=== PATIENT | female | born 1955 | race African-American/Black ===

== ENCOUNTER 2017-10-02 11:29 | Emergency (ER) | payer OTHER ==
[~2017-10-02] VITALS: Ht 160 cm; Wt 76.8 kg
[2017-10-02] MEDS ORDERED: SIME80TA11 PO (11:58)
[2017-10-02] MEDS ORDERED: ATEN100T PO (11:58)
[2017-10-02] MEDS ORDERED: HYDR25TA PO (11:58)
[2017-10-02] MEDS ORDERED: NITR.4 SL (11:58)
[2017-10-02] MEDS ORDERED: GLIP5 PO (11:58)
[2017-10-02] MEDS ORDERED: ROSU20 PO (11:58)
[2017-10-02] MEDS ORDERED: PARO10TA89 PO (11:58)
[2017-10-02] MEDS ORDERED: SITA50 PO (11:58)
[2017-10-02] MEDS ORDERED: ASPI81 PO (11:58)
[2017-10-02] MEDS ORDERED: PRAV40TA4 PO (11:58)
[2017-10-02 12:03] LABS: GLUCOSE,POINT OF CARE 162 MG/DL (70-110)
[2017-10-02 12:09] LABS: APPEARANCE,URINE CLOUDY (CLEAR); GLUCOSE, URINE (UA) >=1000 mg/dL (NEGATIVE); KETONES,URINE NEGATIVE (NEGATIVE); LEUKOCYTE ESTERASE ,URINE MODERATE (NEGATIVE); OCCULT BLOOD,URINE TRACE (NEGATIVE); PH,URINE 5.5 (5.0-8.0); PROTEIN,URINE TRACE (NEGATIVE)
[2017-10-02 12:21] LABS: ADD UA MICROSCOPIC YES
[2017-10-02 12:22] LABS: WBC,URINE >100 /HPF (0-5)
[2017-10-02 12:23] LABS: RBC,URINE 0-2 /HPF (0-2)
[2017-10-02 12:24] LABS: SQUAMOUS EPITHELIAL CELL,UR Few /LPF (None Seen)
[2017-10-02] MEDS ORDERED: CefTRIAXone SODIUM 1 GM/VIAL IM ONE (13:00)
[2017-10-02] MEDS ORDERED: LIDOCAINE HCL/PF 1% 2 ML VIAL IM ONE (13:00)
[2017-10-02 13:40] VITALS: BP 142/88
[2017-10-02] MEDS ORDERED: HYDROCODONE/ACETAMINOPHEN 5-325 MG TABLET PO ONE (14:00)
== END 2017-10-02 14:52 | disposition home or self-care (01) ==
LOC: EMS 11:31
DX: N39.0 Urinary tract infection, site not specified (principal); I20.9 Angina pectoris, unspecified; E11.9 Type 2 diabetes mellitus without complications; E78.00 Pure hypercholesterolemia, unspecified; I10 Essential (primary) hypertension; G89.29 Other chronic pain; Z88.2 Allergy status to sulfonamides
CPT/HCPCS: 81001; 82962; 87077; 87086; 87186; 96372; 99284; J0696; J3490

== ENCOUNTER 2017-10-06 14:46 | Emergency (ER) | payer OTHER ==
[~2017-10-06] VITALS: Ht 160 cm; Wt 76.8 kg
[~2017-10-06 14:46] MED LIST: ASPI81 PO; ATEN100T PO; GLIP5 PO; HYDR25TA PO; NITR.4 SL; PARO10TA89 PO; PRAV40TA4 PO; ROSU20 PO; SIME80TA11 PO; SITA50 PO
[2017-10-06 14:57] LABS: GLUCOSE,POINT OF CARE 200 MG/DL (70-110)
[2017-10-06] MEDS ORDERED: MORPHINE SULFATE 4 MG/ML SYRINGE IM ONE (15:15)
[2017-10-06] MEDS ORDERED: DEXAMETHASONE SOD PHOS 4 MG/ML 5 ML VIAL IM ONE (15:15)
[2017-10-06 15:41] VITALS: BP 129/84
== END 2017-10-06 15:44 | disposition home or self-care (01) ==
LOC: EMS 14:46
DX: M54.5 Low back pain (principal); G89.29 Other chronic pain; E11.9 Type 2 diabetes mellitus without complications; E78.00 Pure hypercholesterolemia, unspecified; I10 Essential (primary) hypertension; I20.9 Angina pectoris, unspecified; Z88.2 Allergy status to sulfonamides; Z79.82 Long term (current) use of aspirin; Z87.440 Personal history of urinary (tract) infections
CPT/HCPCS: 82962; 96372; 99284; J2270; J1100

== ENCOUNTER 2018-06-20 11:41 | Emergency (ER) | payer OTHER ==
[~2018-06-20] VITALS: Ht 160 cm; Wt 76.8 kg
[2018-06-20 11:54] LABS: GLUCOSE,POINT OF CARE 311 MG/DL (70-110)
[2018-06-20] MEDS ORDERED: KETOROLAC TROMETHAMINE 60 MG/2 ML VIAL IM ONE (13:00)
[2018-06-20 13:25] VITALS: BP 141/86
== END 2018-06-20 13:30 | disposition home or self-care (01) ==
LOC: EMS 11:42
DX: S39.012A Strain of muscle, fascia and tendon of lower back, initial encounter (principal); I10 Essential (primary) hypertension; G89.29 Other chronic pain; I20.9 Angina pectoris, unspecified; E11.9 Type 2 diabetes mellitus without complications; E78.00 Pure hypercholesterolemia, unspecified; Z88.2 Allergy status to sulfonamides; X58.XXXA Exposure to other specified factors, initial encounter; Y93.89 Activity, other specified; Y92.89 Other specified places as the place of occurrence of the external cause; Y99.8 Other external cause status
CPT/HCPCS: 82962; 96372; 99283; J1885

== ENCOUNTER 2018-07-13 12:20 | Emergency (ER) | payer OTHER ==
[~2018-07-13] VITALS: Ht 160 cm; Wt 78.2 kg
[2018-07-13 12:44] LABS: GLUCOSE,POINT OF CARE 175 MG/DL (70-110)
[2018-07-13] MEDS ORDERED: LIDOCAINE HCL 5% TRANSDERMAL PATCH TD ONE (13:30)
[2018-07-13 13:44] VITALS: BP 145/96
== END 2018-07-13 14:06 | disposition home or self-care (01) ==
LOC: EMS 12:21
DX: G89.29 Other chronic pain (principal); M54.5 Low back pain; I10 Essential (primary) hypertension; E11.9 Type 2 diabetes mellitus without complications; E78.00 Pure hypercholesterolemia, unspecified; F32.9 Major depressive disorder, single episode, unspecified; Z88.2 Allergy status to sulfonamides; Z79.82 Long term (current) use of aspirin
CPT/HCPCS: 99283

== ENCOUNTER 2018-08-18 12:57 | Emergency (ER) | payer OTHER ==
[~2018-08-18] VITALS: Ht 157.5 cm; Wt 76.8 kg
[2018-08-18 13:09] LABS: GLUCOSE,POINT OF CARE 264 MG/DL (70-110)
[2018-08-18] MEDS ORDERED: KETOROLAC TROMETHAMINE 60 MG/2 ML VIAL IM ONE (16:45)
[2018-08-18] MEDS ORDERED: METHOCARBAMOL 500 MG TABLET PO ONE (16:45)
[2018-08-18 17:17] VITALS: BP 148/80
== END 2018-08-18 17:32 | disposition home or self-care (01) ==
LOC: EMS 12:58
DX: G89.29 Other chronic pain (principal); M54.41 Lumbago with sciatica, right side; I11.9 Hypertensive heart disease without heart failure; I20.9 Angina pectoris, unspecified; F32.9 Major depressive disorder, single episode, unspecified; E11.9 Type 2 diabetes mellitus without complications; E78.00 Pure hypercholesterolemia, unspecified; Z88.2 Allergy status to sulfonamides; Z79.82 Long term (current) use of aspirin; Z79.84 Long term (current) use of oral hypoglycemic drugs; Z79.899 Other long term (current) drug therapy
CPT/HCPCS: 82962; 96372; 99283; J1885

== ENCOUNTER 2023-08-05 13:00 | Emergency (ER) | payer MEDICARE, MEDICAID ==
[~2023-08-05] VITALS: Ht 160 cm; Wt 76.4 kg
[~2023-08-05 13:00] MED LIST changes: +ASPI-1450 PO; -ASPI81 PO; -ATEN100T PO; +ATEN100T92 PO; -GLIP5 PO; +GLIP5TAB12 PO; -HYDR25TA PO; +HYDR25TA2 PO; -NITR.4 SL; +NITR0.4T52 SL; -ROSU20 PO; +ROSU20TA73 PO
[2023-08-05 13:09] VITALS: TEMP 97.9
[2023-08-05] MEDS ORDERED: ISOS30TA92 PO (13:19)
[2023-08-05] MEDS ORDERED: NITR0.4T52 SL (13:19)
[2023-08-05 14:21] LABS: GLUCOMETER DEV NAME(LOC) ERT.5; GLUCOSE,POINT OF CARE 223 MG/DL (70-110)
[2023-08-05 14:47] LABS: BASOPHILS % (AUTO) 1.1 % (0.0-2.0); EOSINOPHILS % (AUTO) 4.2 % (1.0-6.0); HEMATOCRIT 39.1 % (36-46); HEMOGLOBIN 13.1 g/dL (12.0-16.0); LYMPHOCYTES # (AUTO) 1.1 K/uL (1.0-4.8); LYMPHOCYTES % (AUTO) 33.5 % (22.0-44.0); MEAN CORPUSCULAR HEMOGLOBIN 31.5 pg (26.0-34.0); MEAN CORPUSCULAR HGB CONC 33.5 G/dL (31.0-37.0); MEAN CORPUSCULAR VOLUME 94 fL (80-100); MONOCYTES # (AUTO) 0.3 K/uL (0.1-1.0); MONOCYTES % (AUTO) 8.2 % (2.0-9.0); NEUTROPHILS # (AUTO) 1.8 K/uL (1.8-7.7); PLATELET COUNT (AUTO) 282 K/uL (150-450); RED BLOOD CELL COUNT(AUTO) 4.16 MIL/uL (4.00-5.20); RED CELL DISTRIBUTION WIDTH 13.7 % (11.5-14.5); WHITE BLOOD COUNT (AUTO) 3.4 K/uL (4.5-11.0)
[2023-08-05 14:50] LABS: RBC MORPHOLOGY COMMENT NORMAL RBC MORPH
[2023-08-05 14:56] LABS: ANION GAP 6 mmol/L (8-16); CARBON DIOXIDE 31 mmol/L (22-29); CHLORIDE 99 mmol/L (98-107); CREATININE 0.82 mg/dL (0.60-1.30); GLOMERULAR FILTR. RATE CALC > 60 mL/min (>60); GLUCOSE,RANDOM 206 mg/dL (70-110); POTASSIUM 3.6 mmol/L (3.5-5.1); SODIUM SERUM 136 mmol/L (136-145); UREA NITROGEN, BLOOD 19 mg/dL (7-18)
[2023-08-05 15:03] LABS: TROPONIN I-HIGH SENSITIVITY 7 ng/L (<51)
[2023-08-05 15:04] LABS: B-TYPE NATRIURETIC PEPTIDE 88 pg/mL (0-100)
[2023-08-05 15:20] LABS: ALANINE AMINOTRANSFERASE 29 U/L (12-78); ALBUMIN 3.7 g/dL (3.4-5.0); ALKALINE PHOSPHATASE 76 U/L (46-116); ASPARTATE AMINOTRANSFERASE 21 U/L (15-37); BILIRUBIN,TOTAL 0.3 mg/dL (0.1-1.0); CREATINE KINASE, TOTAL ONLY 113 U/L (26-192); TOTAL PROTEIN, SERUM 8.2 g/dL (6.4-8.2)
[2023-08-05] MEDS ORDERED: SODIUM CHLORIDE 0.9% 100 ML ONE (15:41)
[2023-08-05] MEDS ORDERED: IOHEXOL 300 MG/ML 100 ML VIAL ONE (15:41)
[2023-08-05 16:15] LABS: APPEARANCE,URINE CLEAR (CLEAR); BILIRUBIN,URINE NEGATIVE (NEGATIVE); COLOR,URINE COLORLESS (YELLOW); GLUCOSE, URINE (UA) >=1000 mg/dL (NEGATIVE); KETONES,URINE NEGATIVE (NEGATIVE); LEUKOCYTE ESTERASE ,URINE NEGATIVE (NEGATIVE); NITRATE,URINE NEGATIVE (NEGATIVE); OCCULT BLOOD,URINE NEGATIVE (NEGATIVE); PROTEIN,URINE NEGATIVE (NEGATIVE); SPECIFIC GRAVITIY, URINE 1.031 (1.003-1.030); UROBILINOGEN,URINE <=1.0 mg/dL (<=1.0)
[2023-08-05 16:33] LABS: BACTERIA,URINE None Seen /HPF (None Seen); RBC,URINE None Seen /HPF (0-2)
[2023-08-05 16:34] LABS: SQUAMOUS EPITHELIAL CELL,UR Rare /LPF (None Seen); WBC,URINE 0-2 /HPF (0-5)
[2023-08-05] MEDS ORDERED: DOXY-354 PO (17:40)
[2023-08-05] MEDS ORDERED: DOXYCYCLINE HYCLATE 100 MG TABLET PO ONE (17:45)
[2023-08-05 18:08] VITALS: BP 152/79; PULSE 65; RESP 16
[2023-08-05] MEDS ORDERED: ROSU5TAB PO (18:15)
[2023-08-05] MEDS ORDERED: ASPI-1444 PO (18:15)
[2023-08-05] MEDS ORDERED: OLOP2.5D16 OU (18:15)
[2023-08-05] MEDS ORDERED: CLOB15OI3 TP (18:15)
[2023-08-05] MEDS ORDERED: OMEP20CA12 PO (18:15)
[2023-08-05] MEDS ORDERED: AMLO2.5T29 PO (18:15)
[2023-08-05] MEDS ORDERED: FOLI-151 PO (18:15)
[2023-08-05] MEDS ORDERED: IBUP-1556 PO (18:15)
[2023-08-05] MEDS ORDERED: EMPA25TA3 PO (18:15)
[2023-08-05] MEDS ORDERED: FLUT16SP NASAL (18:15)
[2023-08-05] MEDS ORDERED: LOSA-381 PO (18:15)
[2023-08-05] MEDS ORDERED: LID5O TP (18:15)
[2023-08-05] MEDS ORDERED: ALEN35TA41 PO (18:15)
[2023-08-05] MEDS ORDERED: SITA100 PO (18:15)
[2023-08-05] MEDS ORDERED: POTA8CAP20 PO (18:15)
[2023-08-05] MEDS ORDERED: GLIP10TA9 PO (18:15)
[2023-08-05] MEDS ORDERED: CLIN60SO13 TP (18:15)
[2023-08-05] MEDS ORDERED: DICL100G60 TP (18:15)
[2023-08-05] MEDS ORDERED: OMEG-189 PO (18:15)
[2023-08-05] MEDS ORDERED: GABA800T9 PO (18:15)
== END 2023-08-05 18:10 | disposition home or self-care (01) ==
LOC: EMS 13:01
DX: J18.9 Pneumonia, unspecified organism (principal); I20.9 Angina pectoris, unspecified; I10 Essential (primary) hypertension; F32.A Depression, unspecified; E11.9 Type 2 diabetes mellitus without complications; E78.00 Pure hypercholesterolemia, unspecified; G89.29 Other chronic pain; M54.9 Dorsalgia, unspecified
CPT/HCPCS: 99285; 71275; 71045; 80053; 81001; 82550; 82962; 83880; 84484; 85025; 85379; 36415; 93005; J7050; Q9967